=== PATIENT | female | born 1985 | race Caucasian/White ===

== ENCOUNTER 2021-03-25 21:14 | Emergency (ER) | payer OTHER ==
--- NOTE | 2021-03-25 22:44 | XR ---
EXAMINATION TYPE: XR chest 2V DATE OF EXAM: 03/25/2021 COMPARISON: NONE HISTORY: Chest pain TECHNIQUE: 2 views FINDINGS: Heart and mediastinum are normal. Lungs are clear. Diaphragm is normal. Bony thorax appears normal. IMPRESSION: Normal chest.
[2021-03-25] MEDS ORDERED: SODIUM CHLORIDE 0.9% 50 ML IVPB ONE (23:45)
[2021-03-26] MEDS ORDERED: CASIRIVIMAB (REGN10933) (EUA) 600 MG, IMDEVIMAB (REGN10987) (EUA) 600 MG in SODIUM CHLO... IVPB ONE ×3
[2021-03-26] MEDS ORDERED: SODIUM CHLORIDE 0.9% 1,000 ML IV STA (00:18)
--- NOTE | 2021-03-26 00:48 | ED ---
URI HPI - General Chief Complaint: Upper Respiratory Infection Stated Complaint: fever, cough Time Seen by Provider: 03/25/21 23:41 Source: patient, RN notes reviewed Mode of arrival: ambulatory Limitations: no limitations - History of Present Illness Initial Comments: Patient is a 35-year-old female that presents to the emergency department complaining of upper respiratory tract symptoms of not feeling well. She notes that her mom is Covid-positive so she wants to get a test. Patient also notes that she feels dehydrated and would like some fluids. Patient was otherwise well-appearing. She denied any other issues or complaints. She denied chest pain shortness breath headache nausea vomiting diarrhea constipation fever fatigue chills. - Related Data Allergies Allergy/AdvReac Type Severity Reaction Status Date / Time No Known Allergies Allergy Verified 03/25/21 22:14 Review of Systems ROS Statement: Those systems with pertinent positive or pertinent negative responses have been documented in the HPI. ROS Other: All systems not noted in ROS Statement are negative. Past Medical History Past Medical History: No Reported History History of Any Multi-Drug Resistant Organisms: None Reported Past Surgical History: No Surgical Hx Reported Smoking Status: Never smoker Past Alcohol Use History: None Reported Past Drug Use History: None Reported General Exam Limitations: no limitations General appearance: alert, in no apparent distress, obese Head exam: Present: atraumatic, normocephalic, normal inspection Eye exam: Present: normal appearance, PERRL, EOMI. Absent: scleral icterus, conjunctival injection, periorbital swelling ENT exam: Present: normal exam, mucous membranes moist Neck exam: Present: normal inspection Respiratory exam: Present: normal lung sounds bilaterally. Absent: respiratory distress, wheezes, rales, rhonchi, stridor Cardiovascular Exam: Present: regular rate, normal rhythm, normal heart sounds. Absent: systolic murmur, diastolic murmur, rubs, gallop, clicks Extremities exam: Present: normal inspection, full ROM, normal capillary refill. Absent: tenderness, pedal edema, joint swelling, calf tenderness Neurological exam: Present: alert, oriented X3 Psychiatric exam: Present: normal affect, normal mood Skin exam: Present: warm, dry, intact, normal color. Absent: rash Course Vital Signs 03/25/21 03/26/21 22:05 00:13 Temperature 97.6 F Pulse Rate 86 Respiratory 19 18 Rate Blood Pressure 115/76 O2 Sat by Pulse 97 Oximetry Medical Decision Making - Medical Decision Making 35-year-old female with upper respiratory tract symptoms. Covid test, chest x-ray, 1 L normal saline ordered. Covid test positive. Patient wishes to undergo monoclonal antibody infusion. Chest x-ray negative for any acute process. Patient is agreeable with discharge home after IV antibody infusion Case discussed with Dr. Perkins, patient discharge home. - Lab Data Lab Results 03/25/21 Range/Units 22:10 Coronavirus (PCR) Detected A (Not Detectd) - Radiology Data Radiology results: report reviewed, image reviewed Chest x-ray: Normal chest. Disposition Clinical Impression: COVID Disposition: HOME SELF-CARE Condition: Stable Instructions (If sedation given, give patient instructions): Coronavirus Disease 2019 (COVID-19) Additional Instructions: Please return to the Emergency Department if symptoms worsen or any other conc erns. Follow-up with primary care 1-2 days. Quarantine per CDC guidelines. Take Tylenol Motrin for fever. Is patient prescribed a controlled substance at d/c from ED?: No Referrals: Des Pablo MD [Primary Care Provider] - 1-2 days Time of Disposition: 00:48
[2021-03-26 01:33] VITALS: BP 129/74; PULSE 77; RESP 20; TEMP 98.4
== END 2021-03-26 01:43 | disposition home or self-care (01) ==
LOC: EC 21:14
DX: U07.1 COVID-19 (principal)
CPT/HCPCS: 99283 ×2; 96361 ×2; 87635; 71046; M0243; Q0243; 96360